=== PATIENT | male | born 1985 | race Caucasian/White ===

== ENCOUNTER 2020-02-05 21:12 | Emergency (ER) | payer BC ==
[~2020-02-05] VITALS: Ht 175.3 cm; Wt 87.0 kg
[2020-02-05] MEDS ORDERED: KETOROLAC 60MG/2ML VIAL IM STA (21:44)
[2020-02-05 21:51] VITALS: BP 156/105
== END 2020-02-05 23:04 | disposition home or self-care (01) ==
LOC: ER 21:12
DX: S43.101A Unspecified dislocation of right acromioclavicular joint, initial encounter (principal); V19.3XXA Pedal cyclist (driver) (passenger) injured in unspecified nontraffic accident, initial encounter; Y93.55 Activity, bike riding; Y92.488 Other paved roadways as the place of occurrence of the external cause
CPT/HCPCS: 73030; 96372; 99283; J1885; A4565